=== PATIENT | female | born 1980 | race Caucasian/White ===

== ENCOUNTER 2022-04-21 13:08 | Emergency (ER) | payer SELFPAY ==
[~2022-04-21] VITALS: Ht 154.9 cm; Wt 80.0 kg
[~2022-04-21 13:08] MED LIST: BACTRIM DS1 TAB PO; CHANTIX0.5 MG OR; CIPRO XR500 MG PO; LORTAB 5/3255 MG PO; MEDDOSEPAK PO; MIRCETTE28 DAY PO; MUPIROCIN2 % EX; PENICILLIN V P500 MG; PERCOCET 5/321 COMBO PO; PERCOCET 5/325M1 TAB PO; TRAMADOL HCL50 MG PO; ZOFRAN ODT8 MG SL; ZOFRAN4 MG OR
[2022-04-21] MEDS ORDERED: BACTRIM DS1 TAB PO (15:23)
[2022-04-21 15:38] VITALS: BP 112/65
== END 2022-04-21 15:30 | disposition home or self-care (01) | DRG 603 ==
LOC: ED 13:08
DX: L03.211 Cellulitis of face (principal); F41.9 Anxiety disorder, unspecified; F17.200 Nicotine dependence, unspecified, uncomplicated

== ENCOUNTER 2022-06-14 13:15 | Observation (INO) | payer SELFPAY ==
[2022-06-14] VITALS (12 sets, daily range): BP systolic 94–131; BP diastolic 59–80
[~2022-06-14] VITALS: Ht 154.9 cm; Wt 81.6 kg
--- NOTE | 2022-06-14 15:35 | NUR ---
PATIENT AMBULATED TO ROOM IN NAD. PROVIDER NOTIFIED OF PATIENT STATUS.
[2022-06-14 15:55] LABS: HEMATOCRIT 40.7 % (37.0-47.0); HEMOGLOBIN 13.6 g/dl (12.0-16.0); IMMATURE GRANULOCYTES 0.2 % (0.0-5.0); MEAN CELL VOLUME 91.5 fL CALC (80.0-100.0); MEAN CORPUSCULAR HGB 30.6 pG CALC (26.0-32.0); MEAN CORPUSCULAR HGB CONC 33.4 g/dL CAL (32.0-36.0); NEUT# 4.34 thou/uL (2.00-7.15); RED BLOOD COUNT 4.45 mill/uL (4.20-5.60); RED CELL DISTRI WIDTH 12.5 % (11.5-15.5)
[2022-06-14 16:06] LABS: ALBUMIN 4.3 g/dL (3.2-5.0); ALKALINE PHOSPHATASE 86 u/l (38-126); ANION GAP 12 (6-22 (CALC)); BUN 6 mg/dL (7-17); BUN/CREATININE RATIO 7 (12-20 (CALC)); CARBON DIOXIDE 21 mmol/l (22-30); CHLORIDE 110 mmol/l (95-108); CREATININE 0.8 mg/dL (0.5-1.0); GFR FOR AFR.AMER. > 60 ML/MIN (>=60 (CALC)); GFR OTHER RACES > 60 ML/MIN (>=60 (CALC)); POTASSIUM 3.8 mmol/l (3.5-5.1); SGOT/AST 33 u/l (14-36); SODIUM 139 mmol/l (137-146); TOTAL PROTEIN 7.3 g/dL (6.3-8.2)
[2022-06-14 16:07] LABS: BILIRUBIN, TOTAL 0.4 mg/dL (0.0-1.4)
[2022-06-14 16:13] LABS: ACT PARTIAL THROMBO TIME 26.5 SECONDS (20.0-32.5); PROTHROMBIN TIME 9.9 SECONDS (9.0-12.5)
[2022-06-14 16:45] LABS: URINE BILIRUBIN - DIPSTICK NEGATIVE (NEGATIVE); URINE BLOOD DIPSTICK NEGATIVE (NEGATIVE); URINE COLOR YELLOW; URINE GLUCOSE - DIPSTICK NEGATIVE (NEGATIVE); URINE KETONE NEGATIVE (NEGATIVE); URINE LEUK ESTERASE NEGATIVE (NEGATIVE); URINE NITRITE - DIPSTICK NEGATIVE (Negative); URINE PROTEIN - DIPSTICK NEGATIVE (NEG-TRACE); URINE SPECIFIC GRAVITY 1.015; URINE UROBILINOGEN - DIPSTICK 0.2 E.U./dL (0.2)
[2022-06-14] MEDS ORDERED: TRAZODONE100 MG PO (16:55)
[2022-06-14] MEDS ORDERED: HYDROXYZ HCL10 MG PO (16:55)
[2022-06-15 04:06] VITALS: BP 111/64
[2022-06-15 07:10] VITALS: BP 100/54
--- NOTE | 2022-06-15 07:39 | NUR ---
BEDSIDE REPORT RECEIVED FROM MIKEL GEORGE. PT RESTING QUIETLY IN BED WITH NO COMPLAINTS VOCIED. NO SIGNS OF DISTRESS NOTED. ALL ITEMS WITHIN REACH. WILL CONTINUE TO MONITOR.
[2022-06-15 10:25] VITALS: BP 118/67
[2022-06-15] MEDS ORDERED: ZITHROMAX250 MG PO (10:39)
[2022-06-15] MEDS ORDERED: PREDNISONE10 MG PO (10:40)
[2022-06-15] MEDS ORDERED: BIOTUSSIN PO (10:41)
--- NOTE | 2022-06-15 15:00 | NUR ---
PT STATES SHE IS GOING HOME AND DOESN'T FEEL SHE NEEDS A NEB TX.
--- NOTE | 2022-06-15 17:51 | NUR ---
MARZENA REMOVED WITH TIP INTACT, NO IV RELATED COMPLICATIONS NOTED. TELE REMOVED. DC INSTRUCTIONS EXPLAINED TO PATIENT, PT VERBALIZES UNDERSTANDING AND DENIES QUESTIONS. [facility]FA INHALER CALLED TO PT'S PHARMACY ([facility]). PT DISCHARGED HOME WITH FAMILY VIA WC WITH ALL PERSONAL BELONGINGS.
== END 2022-06-15 17:45 | disposition home or self-care (01) | DRG 202 ==
LOC: ED 13:15 → ED-I 19:15 → ED 20:11 → MS2 20:12
PROVIDERS: Physician Assistant Surgical; ADMIT Internal Medicine; ATTEND Internal Medicine
DX: J45.901 Unspecified asthma with (acute) exacerbation (principal); E87.20 Acidosis, unspecified; I10 Essential (primary) hypertension; F41.9 Anxiety disorder, unspecified; F17.210 Nicotine dependence, cigarettes, uncomplicated; F17.290 Nicotine dependence, other tobacco product, uncomplicated; Z20.822 Contact with and (suspected) exposure to COVID-19
CPT/HCPCS: G0378; Q9967